=== PATIENT | male | born 1950 | race Caucasian/White ===

== ENCOUNTER 2020-07-14 13:53 | Inpatient (IN) | payer OTHER ==
[~2020-07-14] VITALS: Ht 193 cm; Wt 94.3 kg
[2020-07-14 19:37] VITALS: BP 138/87
[2020-07-14] MEDS ORDERED: VENLAFAXINE HC150 MG PO (22:55)
[2020-07-14] MEDS ORDERED: NAMENDA 10 MG T10 MG PO (22:57)
[2020-07-14] MEDS ORDERED: DULOXETINE HCL30 MG PO (22:57)
[2020-07-14] MEDS ORDERED: ARICEPT10 M1 PO (22:58)
[2020-07-14] MEDS ORDERED: SEROQUEL XR1 EACH PO (23:01)
[2020-07-14] MEDS ORDERED: NEURONTIN600 MG PO (23:02)
[2020-07-14] MEDS ORDERED: LUNESTA3 MG PO (23:03)
[2020-07-14] MEDS ORDERED: DESYREL150 MG PO (23:04)
[2020-07-14] MEDS ORDERED: PROTONIX40 M4 PO (23:05)
[2020-07-14] MEDS ORDERED: QUETIAPINE FUMA25 MG PO (23:07)
[2020-07-14] MEDS ORDERED: ATIVAN1 M1 PO (23:08)
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
[2020-07-15 09:37] VITALS: BP 151/85
[2020-07-15 09:38] VITALS: BP 151/85
--- NOTE | 2020-07-15 10:59 | NUR ---
Nutrition: Received new admission consult. Dx dementia with behaviors. PMH of Alzheimers, suicide attempts in 2013, HLD, HTN, GERD, anxiety. Nsg admission assessment indicated poor intake however pt reports great appetite and stable weights. Ate 100% of breakfast this am on soft, fiber rest. diet ordered by Dr Gay. BM 07/14. Chart reviewed, place as low nutrition risk.
[2020-07-15 11:31] VITALS: BP 151/85
--- NOTE | 2020-07-15 11:49 | NUR ---
Assumed pt care at 0700. pt was calm and compliant with care. oriented to self. Took meds whole, no difficulty noted. Assessments completed, vss. no sign of acute distress noted upon assessments. No c/o pain at this time. denies si/hi. Ambulates with a steady gait. pt wanders into room and around the unit. Will continue to monitor pt.
[2020-07-15 19:30] VITALS: BP 101/70
--- NOTE | 2020-07-16 00:18 | NUR ---
Alert and orientated to self only. 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 Thought he was in [place], [place]. Ambulating t/o unit with regular, steady gait and wandering into other pt rooms, very redirectable. Took meds whole. Breath sounds clear. Reg HR auscultated. Color pink with brisk capillary refill and palpable peripheral pulses. Incontinent of yellow urine per brief. Active bowel sounds over soft, rounded abdomen. Small BM per brief, soft and brown. Fell asleep shortly after Trazadone given, currently sleeping without s/o distress.
[2020-07-16 10:08] VITALS: BP 151/95
[2020-07-16 12:27] VITALS: BP 151/95
--- NOTE | 2020-07-16 15:02 | NUR ---
Assumed pt care at 0700. pt was alert and oriented to self. assessments completed, vss. pt took meds whole, no difficulty noted. DEnies si/hi, denies pain at this time. ambulates with a steady gait. There was no sign of acute distress noted upon assessments. Pt's visited pt. pt wanders the unit. WIll continue to monitor pt.
--- NOTE | 2020-07-16 16:59 | NUR ---
BENITO was able to speak with Amarilis Veras and complete the assessment. Amarilis would like to pursue placement for the Pt. Amarilis stated placement would be private funds until Pt could qualify for medicaid. Amarilis requested ref[place] be sent in the [place]/ [place]/ [place] area. BENITO informed that Pt did have a shower and a shave today per her request. BENITO will continue to follow
[2020-07-16 19:30] VITALS: BP 107/70
--- NOTE | 2020-07-16 22:57 | NUR ---
Alert and orientated to name only. States he has a headache, initially stating it was an 8 and then a 5. Also stating that it wasn't that bad. Tylenol given, sleeping upon reassessment. Denies SI/HI. Calmer this evening, wandering but at a slower pace, very redirectable. Slow, steady, regular gait. Spending more time watching TV and talking with peers. Stated he thought he was here because of Daniel Bergeron. When asked if he wanted Trazadone he stated, "I think I better." Breath sounds clear. Reg HR auscultated. Color pink with brisk capillary refill and palpable peripheral pulses. Yellow urine per toilet, continent when reminded. Active bowel sounds over soft, rounded abdomen. Currently sleeping without s/o distress, awake but quiet on next round.
[2020-07-17 08:24] VITALS: BP 146/85
[2020-07-17 18:06] VITALS: BP 146/85
--- NOTE | 2020-07-17 18:12 | NUR ---
Assumed pt care at 0700. Pt was oriented to self. took meds whole, no difficulty noted. Assessments completed, vss. pt constantly wanders the unit. there is no behavior or sign of si/hi noted. no sign of distress noted upon assessments. ambulates with a steady gait. pt's visited. WILL CONTINUE TO MONITOR.
[2020-07-17 19:47] VITALS: BP 142/79
--- NOTE | 2020-07-17 23:10 | NUR ---
PT WANDERING DAY ROOM AND HALLS, PT DOES CHECK DOORS. FLAT AFFECT, POOR EYE CONTACT, STEADY GAIT. COMPLIANT WITH MEDS AND ADL CARES. SNACK PROVIDED. BED ALARM ON. PT IS INCONTINENT AT TIMES.
[2020-07-18 09:35] VITALS: BP 162/97
[2020-07-18 11:22] VITALS: BP 162/97
--- NOTE | 2020-07-18 11:30 | NUR ---
ASSUMED CARE AT 0700 THIS MORNING. PT. UP WANDERING IN THE HALLS. HE IS OFTEN INFORMED WHERE HIS ROOM IS. HE WILL FOLLOW STAFF AROUND AND HAVE TO BE STOPPED FROM ENTERING PEERS ROOMS. HE IS UNABLE TO SIT STILL FOR VERY LONG. HE ATE ABOUT 1/2 HIS BREAKFAST AND THEN STOOD UP WANDERING THE ROOM. HE WAS STOPPED FROM BEING INTRUSIVE WITH PEERS DURING BREAKFAST. PT. HAS NOT BEEN COMBATIVE THIS MORNING. WAS COMPLIANT WITH TAKING HIS MEDICATIONS AND WITH STAFF INSTRUCTIONS. NO NEW PROBLEMS NOTED OR VOICED. WILL CONTINUE TO MONITOR.
[2020-07-18 19:05] VITALS: BP 164/80
[2020-07-18 20:20] VITALS: BP 164/80
--- NOTE | 2020-07-19 02:35 | NUR ---
PATIENT WAS UP IN DINING ROOM THIS EVENING AND THEN WANDERING IN THE HALLS. HE WOULD COME BACK TO THE DINING ROOM AND JUST STAND AND STARE IF CONFUSED AND DIDN'T KNOW WHAT TO DO NEXT. HE HAS TO BE DIRECTED ON ALL THINGS. AT SNACK TIME HE WAS EATING ICECREAM AND WAS TEARING THE STYROFOAM AWAY FROM THE ICECREAM AND TRYING TO HOLD THE ICECREAM IN HIS HAND. HE WAS A MESS. PATIENT TOOK HIS MEDS CRUSHED IN PUDDING TONIGHT. HE WAS ASSISTED TO BED AND HAS AWOKEN THREE TIMES HE WOULD WANDER TO THE SPARROW AND JUST STAND AND LOOK AROUND. HE WAS EASILY REDIRECTED BACK TO BED. PATIENT DENIES PAIN. NO SIGNS OF SI/HI/AVH. VERY TO HIMSELF TONIGHT. ROUTINE ROUNDS TO ASSESS STATUS AND SAFETY OF PATIENT. BED IN LOW POSITION AND BED ALARM IS ON.
[2020-07-19 10:24] VITALS: BP 159/87
[2020-07-19 13:29] VITALS: BP 159/87
--- NOTE | 2020-07-19 16:55 | NUR ---
Assumed pt care at 0700. pt was oriented to self. Assessments completed, vss. took meds whole, no difficulty noted. Denies si/hi. there was no c/o pain. Ambulates with a steady gait. pt wanders the unit and into rooms. No sign of acute distress upon assessments. pt visited. At this time pt is eating dinner. Will continue to monitor.
[2020-07-19 19:48] VITALS: BP 129/76
[2020-07-19 20:10] VITALS: BP 129/76
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
[2020-07-20 09:41] VITALS: BP 148/85
--- NOTE | 2020-07-20 11:46 | NUR ---
SW sent referrals to the following [phone] [facility] [phone] [facility] [phone] [facility] [phone] [facility] [phone] [facility] [phone] [facility] [phone] [facility] [phone]
--- NOTE | 2020-07-20 14:04 | NUR ---
0700 ASSUMED CARE OF PATIENT, PATIENT AMB IN SAPRROW AT THAT TIME. AMB WITH STEADY GAIT. VS 148/85, 64, 18, 97.4, 100%. PATIENT SIT AT TABLE FOR BREAKFAST THEN BACK UP AMB IN SPARROW AND DAYROOM. PATIENT NOTED TAKING SHIRT OF MULTIPLE TIMES IN SPARROW WAY. PATIENT ASKED TO PUT SHIRT BACK ON. EASILY REDIRECTABLE. MEDICATION TAKEN CRUSHED IN PUDDING. PATIENT CONFUSED AND UNABLE TO FOLLOW DIRECTIO OF TAKING MEDICATION. PATIENT CALM AND COOPERATIVE. SLEEPS IN CHAIR OFF AND ON.
[2020-07-20 19:33] VITALS: BP 167/70
--- NOTE | 2020-07-21 05:09 | NUR ---
07-20-20 CARE TRANSFERRED 1899 OBSERVED PT WALKING IN HALLWAY. LATER PT AAOX1, VSS, RR EVEN AND NONLABORED ON RA. PT REPORTS HEADACHE AND SCALES 5 ON 0-10 SCALE. PT DENIES SI/HI. PT PRESENTS CONFUSED, HAS BEEN COOPERATIVE DURING NURSING ASSESSMENT. LATER PT WANDERING INTO PEERS ROOMS AND PT HAS BEEN REDIRECTED. PT HAS HAD MULTIPY TIMES GETTING REDIRECTED AND HAS SHOWN MILD AGITATION BUT HAS ALLOWED REDIRECTION AND HAS REMAINED CALM. ZERO S/S OF ACUTE DISTRESS NOTED, PT WILL CONTINUE TO BE MONITOR PER [facility] PROTOCOL.
[2020-07-21 08:00] VITALS: BP 151/73
--- NOTE | 2020-07-21 08:45 | NUR ---
Followup: continues to eat 100% meals. Wt up 6 lb, BMI 25.3 adequate. Low nutrition risk
--- NOTE | 2020-07-21 14:45 | NUR ---
0700 ASSUMED CARE OF PATIENT, PATIENT UP IN SPARROW WANDERING. PATIENT NOT FOLLOWING DIRECTION AND RESTLESS DURING BREAKFAST TIME. PATIENT WILL NOT SIT STILL LONG ENOUGH TO EAT. DR LIPSCOMB NOTIFIED AND FINGER FOODS ORDERED. MEDICATION TAKEN CRUSHED WITHOUT DIFFICULTY. PATIENT PRESENT IN GROUPS. PATIENT CALM AND COOPERATIVE. LS CLEAR, BS ACTIVE, NO C/O PAIN.
--- NOTE | 2020-07-21 16:17 | NUR ---
BENITO sent a referral to [facility]. It was emailed to the sports administrator Leona at [email or web address]. The phone number to the facility is [phone]
[2020-07-21 19:26] VITALS: BP 142/83
--- NOTE | 2020-07-22 05:47 | NUR ---
07-21-20 CARE TRANSFERRED 0 OBSERVED PT WALKING IN HALLWAY. LATER PT AAOX1, VSS, RR EVEN AND NONLABORED ON RA. PT DENIES PAIN AND SI/HI AND OBSERVED NO BEHAVIORS. LATER NOTED PT GOT INTO PEERS SPACE AND PT BECAME AGITATED, PT WAS REDIRECTED AND ADMIN PRN. LATER NOTED PT RESTING IN DAY ROOM IN RECLINER. PT WAS ENCOURAGE TO ROOM AND BED WAS ADJUSTED FOR COMFORT. LATER NOTED PT RESTING WITH EYES CLOSED, ZERO S/S OF ACUTE DISTRESS, PT WILL CONTINUE TO BE MONITOR [facility].
[2020-07-22 07:56] VITALS: BP 137/66
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
[2020-07-22 11:15] VITALS: BP 138/71
--- NOTE | 2020-07-22 11:27 | NUR ---
0700 ASSUMED CARE OF PATIENT, PATIENT UP AMB IN SPARROW WITH STEADY GAIT. PATIENT WANDERING AND ENTERING OTHER PATIENTS ROOMS. PATIENT REDIRECTABLE, CALM AND COOPERATIVE. LS CLEAR, BS ACTIVE. ATE 100% OF BREAKFAST. PATIENT UNABLE TO ANSWER SOME QUESTIONS. NO SIGNS OF SI/HI NOTED. PATIENT RECIEVED VISITOR THIS AM. WILL CONTINUE TO OBSERVE.
--- NOTE | 2020-07-22 14:03 | NUR ---
RT Progress Note- Abdulkadir has been present in the milieu since his admission, although his social interactions and boundaries are not up to par. Abdulkadir frequently wanders the hallways and displays restless behavior. He is difficult to engage during groups as he has much difficulty understanding or completing simple tasks. Abdulkadir has been able to remain present for parts of music based groups. He has not displayed any aggression during RT interaction, though he does appear frustrated at times r/t confusion. PIZZA COOK will continue to encourage engagement with a goal to decrease restlessness and wandering through structure.
--- NOTE | 2020-07-22 15:42 | NUR ---
SW sent referrals to the following: [facility]
[2020-07-22 19:08] VITALS: BP 124/84
[2020-07-22 22:37] VITALS: BP 142/71
[2020-07-22 23:15] VITALS: BP 138/71
--- NOTE | 2020-07-22 23:55 | NUR ---
RECEIVED CALL FROM REGISTERED MASSAGE THERAPIST WHO HAD HELPED TX PATIENT TO CT SAYING PATIENT WAS HAVING A SEIZURE. ON ARRIVAL TO CT, PT FOUND TO WITH SNOROUS RESPIRATIONS, IN A POST-ICTAL STATE. CALL PLACED TO TO UPDATE ON PT STATUS; NO ANSWER, MESSAGE LEFT. CALL THEN PLACED TO [facility] ENGINEER FOR ADMISSION TO MEDICAL BED. CALLED BACK AT APPROXIMATELY 2336 AND UPDATED WITH ORDERS RECEIVED. PT IMMEDITALEY TRANSFERRED TO CCT BED. SEIZURE PRECAUTIONS INITIATED ON ARRIVAL TO NEW ROOM.
[2020-07-22] MEDS ORDERED: SEROQUEL 100 M100 M1 PO (23:56)
[2020-07-22] MEDS ORDERED: TYLENOL325 MG PO (23:56)
[2020-07-22] MEDS ORDERED: NAMENDA 5 MG TAB5 M1 PO (23:56)
[2020-07-22] MEDS ORDERED: SEROQUEL 100 M100 MG PO (23:56)
[2020-07-22] MEDS ORDERED: PROTONIX 20 MG20 M1 PO (23:56)
[2020-07-22] MEDS ORDERED: NEURONTIN 400400 M1 PO (23:56)
[2020-07-22] MEDS ORDERED: SEROQUEL 25 MG25 M1 PO (23:56)
--- NOTE | 2020-07-23 03:43 | NUR ---
Late entry 07/22/20 23:15 patient had just left his room, from his bathroom after toileting, @ 22:38 noted to walk out of the room take several steps, drop to his knees and then the left side of his face impacted the floor. post fall assessment @ 23:15 VS 138/71 59 20 97.1F 97%. neuro checks noted pupils 2mm round and reactive to light. Moves all extremities within normal limits for self. Cooperates with commands Stands and pivots to transfer from bed to kev chair for the purpose of transferring to radiology for CT scan. Abrasion noted to left cheekbone below eye. No other injuries noted. Post fall VS @ 22:37 VS142/71 108 14 97% 97.1F VS @ 19:15 (before fall) 124/84 89 18 97.8 99% transferred to radiology for CT. While in radiology the patient had a seizure. Family notified W 23:45, provided the information that the patient had a seizure and a fall at home about 2 months ago at [facility], and had a CT of the head at that time.
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
== END 2020-07-22 23:50 | DRG 57 ==
LOC: SBH → EDBD 19:12 → SBH 19:12
PROVIDERS: ADMIT Psychiatry & Neurology Psychiatry; ATTEND Psychiatry & Neurology Psychiatry
DX: G30.9 Alzheimer's disease, unspecified (principal); F02.81 Dementia in other diseases classified elsewhere, unspecified severity, with behavioral disturbance; K21.9 Gastro-esophageal reflux disease without esophagitis; Z66 Do not resuscitate; Z20.822 Contact with and (suspected) exposure to COVID-19; F01.50 Vascular dementia, unspecified severity, without behavioral disturbance, psychotic disturbance, mood disturbance, and anxiety; F32.9 Major depressive disorder, single episode, unspecified; G47.00 Insomnia, unspecified; I10 Essential (primary) hypertension; F41.9 Anxiety disorder, unspecified; E78.5 Hyperlipidemia, unspecified; Z82.49 Family history of ischemic heart disease and other diseases of the circulatory system; Z81.8 Family history of other mental and behavioral disorders
CPT/HCPCS: 10880

== ENCOUNTER 2020-07-22 23:58 | Inpatient (IN) | payer OTHER ==
--- NOTE | ~2020-07-22 | EEG ---
[facility] [place] [address] ELECTROENCEPHALOGRAM Name: NAPOLEON RAE Room #: 351-P [facility] IN M.R.#: [id number] Admission: 07/23/20 Attend Phys: Charles Scott MD Discharge: 07/26/20 Date of : 52 Report #: [id number] THIS REPORT FOR: //name// DOC #: [id number] Jimi Yeh MD DATE OF SERVICE: 07/23/2020 This patient is being evaluated for seizure. EEG was done by placing the electrode by standard 10-20 system of electrode placement. Both referential and sequential montages were used for recording. EEG is masked by a lot of artifact because the patient is very impulsive. Background activity appeared to be about 6-7 Hz and it is somewhat slow activity. Photic stimulation is unremarkable. The patient became drowsy that is associated with bilateral slowing and vertex sharp waves. Throughout the record, no active epileptiform activity was noted. IMPRESSION: Suboptimal EEG because it is masked by a lot of artifact because the patient did not cooperate, but did not appear to be showing any active epileptiform activity. Thank you very much for this referral. Jimi Yeh MD PK/MAX By: [id number] Jimi Yeh MD /nt
[~2020-07-22 23:58] MED LIST: ARICEPT10 M1 PO; ATIVAN1 M1 PO; DESYREL150 MG PO; DULOXETINE HCL30 MG PO; LUNESTA3 MG PO; NAMENDA 10 MG T10 MG PO; NAMENDA 5 MG TAB5 M1 PO; NEURONTIN 400400 M1 PO; NEURONTIN600 MG PO; PROTONIX 20 MG20 M1 PO; PROTONIX40 M4 PO; QUETIAPINE FUMA25 MG PO; SEROQUEL 100 M100 M1 PO; SEROQUEL 100 M100 MG PO; SEROQUEL 25 MG25 M1 PO; SEROQUEL XR1 EACH PO; TYLENOL325 MG PO; VENLAFAXINE HC150 MG PO
[2020-07-23 00:04] VITALS: BP 121/70
[2020-07-23 00:05] VITALS: BP 121/70
--- NOTE | 2020-07-23 00:15 | NUR ---
Late entry 07/22/20 @ 23:15, Post fall VS 138/71 97.1F 59 20 [id number]% neuro checks noted Pupils 2mm round and reactive to light, moves all extremities within normal limits for self, cooperates with commands. Stands and pivots to transfer to kev chair to transfer to radiology for CT scan. Abraision noted to left cheekbone below eye.
--- NOTE | 2020-07-23 02:48 | NUR ---
PT ARRIVED TO THE UNIT AT 2330 HRS AFTER HE FELL IN [facility]. PT ALSO HAD A SEIZRE WHILE DOWN IN CT. SINCE COMING UP, PT HAS BEEN SOUNDLY SLEEPING. UNANABLE TO ANSWER ANTY QUESTIONS. UP IN [facility], PT WAS KNOWN TO WANDER AROUND.BREATHING IS NON LABORED-REGULAR, SATTING OKAY ON ROOM AIR. PT HAS ABRASION ON LEFT SIDE OF FACE FROM FALL. NO EDEMA TO BLE-SCDS IN PLACE.SEIURE PRECAUTIONS IN PLACE. NS ON TELEMETRY. AFEBRILE. A DOSE OF IV KEPPRA GIVEN.
[2020-07-23 04:15] VITALS: BP 131/78
[2020-07-23 05:04] LABS: HEMATOCRIT 40.7 % (42.0-52.0); HEMOGLOBIN 14.1 gm/dL (14.0-18.0); MCHC 34.6 g/dL (28.0-37.0); MCV 89.6 fL (80.0-100.0); RBC 4.54 mil/uL (4.50-6.00); RDW 13.1 % (10.5-14.5); WBC 7.1 thou/uL (4.0-11.0)
[2020-07-23 05:21] LABS: CALCIUM 8.5 mg/dL (8.5-10.1); CREATININE 1.1 mg/dL (0.7-1.3); POTASSIUM 3.6 mmol/L (3.5-5.1)
[2020-07-23 08:11] VITALS: BP 140/80
--- NOTE | 2020-07-23 10:10 | NUR ---
PT SLEEPING AT START OF SHIFT, PT BECAME RESTLESS AND INCREASED IMPULSIVE BEHAVIOR AFTER EEG. PT TOOK OFF TELE UNIT, GOWN AND WAS TRYING TO GET OUT OF BED. PT ABLE TO BE DISTRACTED WITH THERAPEUTIC COMMUNICATION. PT UP IN BED WITH BREAKFAST TRAY. PT UNABLE TO REACH/GRAB FOR FOODS BUT DOES TAKE BITE WHEN ASSIST BRING FOOD TO MOUTH. PT NOW IN ROOM.
[2020-07-23 11:31] VITALS: BP 120/68
--- NOTE | 2020-07-23 13:25 | NUR ---
SW received an update in tx team of pt's current condition. SW team will continue to follow pt during his stay on [facility] and [facility].
--- NOTE | 2020-07-23 14:56 | NUR ---
PT COMPLAINT OF CHEST PAIN. EKG ORDERED. DR Kacy DUKE. PT ASYMPTOMATIC. TELE STRIP RAN AND RECORDED IN CHART.
--- NOTE | 2020-07-23 15:43 | NUR ---
INITIAL ASSESSMENT: BENITO reviewed chart and spoke with nursing and attending physician. Pt was admitted from [facility] unit after seizure while have CT completed. Pt had a fall on [facility] last evening. Plan is for pt to remain on 3W over the weekend and will likely discharge back to [facility] on Sunday pending bed availability. BENITO met with pt and at bedside. Introduced role of SW. Pt was sleeping soundly during time of SW visit. Per pt's , pt has hx of dementia and started to become aggressive towards her. Plan is for pt to be placed in a facility and then hopefully will be able to move into a facility in [place], which will be closer to their son. [facility] SW has sent referrals to numerous facilities. Pt and spouse live in [place], [place]. BENITO spoke with Afia, group reservations coordinator at [facility] who states they will reconsider pt and possibly do a bedside eval. BENITO faxed clinical/therapy note for review. BENITO updated [facility] SW. BENITO is following to assist as needed with discharge planning.
--- NOTE | 2020-07-23 15:43 | NUR ---
THIS RN DROPPED THE LORAZEPAM WHEN REACHING OVER TO PT. WITNESSED BY PT . NEW MEDICATION WILL BE PULLED FROM [facility].
--- NOTE | 2020-07-23 15:56 | EKG ---
[address] [place] [address] ELECTROCARDIOGRAM REPORT Name: NAPOLEON RAE Room #: 354-P ADM IN M.R.#: [id number] Admission: 07/23/20 Attend Phys: Charles Scott MD Discharge: Date of : 52 Report #: [id number] [facility] Test Date: 2020-07-23 Test Time: 15:17:06 Pat Name: NAPOLEON RAE Department: Room: 354 P Gender: M Barrel Tester: [id number] : 1950 Requested By: Charles Scott Order Number: [id number] MD: Taj Grossman Measurements Intervals [place] Rate: 67 P: 41 DC: 164 QRS: -25 QRSD: 85 T: 30 QT: 427 QTc: 451 Interpretive Statements Sinus rhythm Left ventricular hypertrophy No previous ECG available for comparison Electronically Signed On 07-23-2020 15:56:07 CDT by Taj Grossman [email or web address] <ELECTRONICALLY SIGNED> By: Taj Grossman MD, [facility] 07/23/20 1556 1517 1517 Taj Grossman MD, FACC /EPI
--- NOTE | 2020-07-23 18:22 | NUR ---
PT INCREASED RESTLESSNESS. PT HAS LEFT FOR THE DAY. PT MOVED TO ROOM CLOSER TO NURSES STATION. DR MILA DUKE.
[2020-07-23 19:10] VITALS: BP 147/73
--- NOTE | 2020-07-24 05:01 | NUR ---
Pt. has had periods of restlessness during the night requiring po haldol (see emar). Medication has been briefly helpful. Pt. has sounded off his bed alarm, but he does not know how to call for assistance. Pt. is alert,confused, but redirectable. Up to bathroom with standby assistance. Pt. keeps pulling off his heart monitor leads. He pulled out his iv earlier during the shift. Bed alarm is on.
--- NOTE | 2020-07-24 06:56 | NUR ---
ASSUMED PT CARE AT SHIFT CHANGE, PT HAS INCREASED IMPULSIVENESS. HALDOL PRN ADMINISTERED. PT REMOVED ONE IV DURING COSTUMED CHARACTER ENTERTAINER AND TELEMETRY.
[2020-07-24 07:11] VITALS: BP 148/79
--- NOTE | 2020-07-24 07:12 | NUR ---
PER PT MEDICAL RECORDS, PT IS A DNR.
[2020-07-24 15:21] VITALS: BP 151/89
[2020-07-24 20:15] VITALS: BP 140/81
--- NOTE | 2020-07-25 07:18 | NUR ---
PROGRESS PT ALERT TO SELF, PLEASANT AND COOPERATIVE, SMILING AND SOCIABLE. REMAINS IMPULSIVE AND CONFUSED BUT EASILY REDIRECTED. UP WITH SBA AND GAIT BELT AMBULATED AROUND THE UNIT A FEW TIMES. LAID IN BED FOR SHORT PERIODS BUT SPENT THE MAJORITY OF THE NIGHT UP IN RECLINER VISITING WITH SITTER. VSS, TAKING PO PILLS WITH APPLESAUCE AND SIPS OF WATER WHEN OFFERED. CONTINUE SITTER NEEDED OFFER FOOD AND FLUIDS THROUGHOUT DAY.
--- NOTE | 2020-07-25 07:23 | NUR ---
ASSUMED PT CARE AT SHIFT CHANGE, PT APPEARS EXHAUSTED. IS SLIGHTLY MORE CONFUSED/DISORIENTED THAN PREVIOUS DAY. PT UNABLE TO FOLLOW COMMANDS TO TOILET. THIS RN WALKED PT APPROXIMATELY 20 FEET BEFORE TAKING HIM BACK TO BED FOR REST. SITTER FROM SBU IN ROOM.
[2020-07-25 08:31] VITALS: BP 149/89
--- NOTE | 2020-07-25 10:37 | NUR ---
PT REMOVED IV ACCESS. PT WILL NOT TOLERATE NURSING ATTEMPTS FOR PLACEMENT OF ANOTHER IV. PHYSICIAN NOTIFIED.
--- NOTE | 2020-07-25 13:36 | NUR ---
PT HAS INCREASED CONFUSION, IS UNABLE TO USE URINAL AND HAS DIFFICULTY WHEN DIRECTED TO SIT ON TOILET.
--- NOTE | 2020-07-25 14:46 | NUR ---
DISCUSSED MEDICATION FOR SLEEP WITH DR LIPSCOMB. REC'D VERBAL ORDER AND ENTERED FOR PHARMACY REVIEW.
--- NOTE | 2020-07-26 07:17 | NUR ---
PROGRESS PT ALERT BUT NOT ORIENTED TO PLACE OR SITUATION. REMAINS ACTIVE WANTING TO WALK AND GET UP ALL THE TIME. HS MEDS GIVEN WITH SOME RESPONSE PT SLEPT ABOUT 4 HOURS. NO ATIVAN THIS SHIFT. ATE A HS SNACK DRANK A GLASS OF WATER AND VOIDED PER BRIEF A FEW TIMES. DENIES PAIN VSS. CONTINUE POC.
[2020-07-26 07:30] VITALS: BP 138/77
[2020-07-26] MEDS ORDERED: DEPAKOTE SPRIN125 MG PO (13:17)
--- NOTE | 2020-07-26 14:25 | NUR ---
DISCHARGE NOTE: SW reviewed chart and spoke with nursing and attending physician. Pt is medically stable to discharge to [facility] unit today. SW met with pt and at bedside. SW left voice message for Afia at [facility] to notify of pt's discharge. [facility] SW to follow and assist as needed with discharge planning. SW is available to assist should needs arise.
--- NOTE | 2020-07-26 20:24 | HC ---
[facility] [address] CONSULTATION Name: NAPOLEON RAE Room #: 351-P [facility] IN M.R.#: [id number] Admission: 07/23/20 Attend Phys: Charles Scott MD Discharge: 07/26/20 Date of : 52 Report #: [id number] THIS REPORT FOR: cc: Levi Talbert MD, Matthew S. MD Kerstein, Andrew H. DO ~ DOC #: [id number] KEYLA Do DO DATE OF SERVICE: 07/23/2020 ATTENDING PHYSICIAN: Charles Scott MD CONSULTING PSYCHIATRIST: Keyla Do DO The patient's DPOA is his , Amarilis. She was present today. CHIEF COMPLAINT: "Doing okay." HISTORY OF PRESENT ILLNESS: This is a 69-year-old male who I previously had on my service on the [facility] Unit. Apparently, last night on [facility], he had a fall, bruised his left cheek. He was taken down for a CT scan of his head, facial bones and had a seizure in the CT area of the hospital. The patient was then emergently discharged from the [facility] Behavioral Health Unit and admitted to the medical unit until Dr. Yeh, our neurologist, has been consulted. The patient was seen in his room today. He was eating lunch. He was alert, but only oriented to self. He denied suicidal or homicidal ideations. He did not know the day of the week. I spoke at length with his , Amarilis. They are recently within the last 2 years relocated to [place], [place] and she has been contemplating what to do with her . His dementia has advanced since they moved back here. In my opinion, he does need 24/7 care in a Memory Care Facility. I have suggested either a respite placement initially or if her sons can help her, she is interested in a nursing facility in [facility]. However, the is contemplating initially taking him home for a few days. I tried to dissuade her from that. That said, she is now working with Maria R Cooper, the medical scribe on placement issues. I spent a fair amount of time discussing medications. The patient had been on Seroquel I believe 100 mg 3 times a day range and since he had a seizure on this drug and was fairly akathisic on it, she preferred to try something else, so I have started him on Depakote 500 mg sprinkles 3 times a day. He did successfully take a dose this afternoon. I discussed with the , the risks, benefits and alternatives of Depakote including the blood monitoring, transaminitis, gait impairment, etc. Discussed limited life expectancy of the patient in this case. Additional information from chart review. PAST MEDICAL/SURGICAL HISTORY: Includes Gabriel fundoplication for GERD . [address] [address] CONSULTATION Name: NAPOLEON RAE Room #: 351-P [facility] IN M.R.#: [id number] Admission: 07/23/20 Attend Phys: Charles Scott MD Discharge: 07/26/20 Date of : 52 Report #: [id number] EDUCATIONAL HISTORY: Bachelor of Pharmacy degree. FAMILY HISTORY: Extended family history of bipolar disorder. No family history of dementia. No physical or sexual abuse history. SOCIAL HISTORY: No smoking, alcohol or illicit drugs. LABORATORY DATA: Laboratories done last night, white count 7.1, H and H 14.1 and 40.7, platelet count 191. Electrolytes: Sodium 144, potassium 3.6, chloride 107, bicarbonate 27, anion gap 10, BUN 14, creatinine 1.1, estimated GFR 67, glucose 122, calcium 8.5. Troponin less than 0.06. CURRENT MEDICATIONS: Lorazepam 1 mg p.o. at bedtime p.r.n. that I ordered, Depakote 500 mg p.o. 3 times a day at 0900, 1500, and 2100. He did get IV loading dose of Keppra. I will defer to the hospitalist and consulting neurologist if any other seizure, medication to be given daily, seizure prevention medication, hence an anticonvulsant. PHYSICAL EXAMINATION: VITAL SIGNS: Today, temperature 37.0, pulse 66, respirations 18, BP 120/68, O2 sat 97%. MUSCULOSKELETAL: Gait not tested. Sitting propped up in bed with lunch tray. MENTAL STATUS EXAMINATION: This is a well-developed, tall male appearing stated age, 192 cm. Attention impaired. Concentration impaired. Speech, normal rate. Thought Process: Linear, very limited. Thought Content: Fair poverty of thought. No psychomotor agitation. No psychomotor retardation. Denied suicidal ideation. Denied homicidal ideation. Denied auditory, visual, or tactile hallucinations. Memory: Not formally tested. Insight: Impaired. Judgment: Impaired. Fund of Knowledge: Well below average. FORMULATION AND PLAN: A 69-year-old male medically admitted after seizure and fall and seen in Behavioral Health Unit. DIAGNOSES: Major neurocognitive disorder due to Alzheimer's disease, advanced with behavioral disturbance. Medical comorbidities include a recent seizure as in last night with history of prior seizure in the last year, insomnia, hypertension, gastrointestinal reflux disease. RECOMMENDATIONS: Started Depakote sprinkles 500 mg 3 times a day for mood stabilization. This medication also has an anticonvulsant effect. We are hoping to avoid use of an antipsychotic, as this patient is likely facing group home placement and those are harder to maintain and some authorities would view as an unacceptable risk. In any event, he has not slept well, and [facility] [address] [place] [address] CONSULTATION Name: NAPOLEON RAE Room #: 351-P DIS IN M.R.#: [id number] Admission: 07/23/20 Attend Phys: Charles Scott MD Discharge: 07/26/20 Date of : 52 Report #: [id number] is wanting Lunesta, which we will have him on formulary, so we will give him 1 mg at bedtime. It looks like he was given 1 mg this afternoon of the bedtime order, but that should not be a regular thing, as I did not want him getting Ativan during the day. In any event, I informed the I will be off this weekend and I will see him again in consultation psychiatry format on Sunday. Unfortunately, the [facility] is full numbers hong and he will have to stay in a medical bed this weekend. Thank you for allowing me to participate in this patient's care. DO CORY Lancaster/NELL/TAJ <ELECTRONICALLY SIGNED> By: Keyla Do DO 07/26/204 1557 1249 Keyla Do, /nt
--- NOTE | 2020-07-27 08:37 | H ---
[facility] [place] [address] HISTORY AND PHYSICAL Name: NAPOLEON RAE Room #: 351-P [facility] IN M.R.#: [id number] Admission: 07/23/20 Attend Phys: Charles Scott MD Discharge: 07/26/20 Date of : 52 Report #: [id number] THIS REPORT FOR: cc: Levi Talbert MD, Matthew S. MD Kerstein, Andrew H. DO ~ DOC #: [id number] KEYLA Do DO DATE OF SERVICE: 07/23/2020 INPATIENT PSYCHIATRIC EVALUATION Please note this is a readmission after several days spent on a medical bed after a fall and seizure last week. SOURCES OF INFORMATION: Interview with the patient, chart review. CHIEF COMPLAINT: Unspecified. HISTORY OF PRESENT ILLNESS: This is a 69-year-old male known to me from admission on the [facility] Behavioral Health Unit from July 16 through July 23 or so and then readmission today July 26. The patient was initially brought in from where he lives with his in [place] for Alzheimer dementia with behavioral disturbance. The patient had some restlessness during the admission. We had made some progress with Seroquel. When unfortunately he had a fall and then a seizure, he was medically admitted. During the medical admission this past SundayJuly 24 and , I was called for assistance with agitation. I initially had started him on 500 mg 3 times a day of Depakote. This proved not to be adequate and always on a medical unit titrated him to 50 mg 3 times a day of chlorpromazine in addition to the Depakote. Other issues from his original admission back on the or so june were the patient and his lived here about 2 years, moved back here from [place] where they spent their adult life, apparently was originally from here. The patient had been a career pharmacist, history of dementia dating back to 2011. Weight is decreased, it looks like in the 25-pound range over 6 months. Sleep is disturbed. reported him being restless. He needs help with basically all of his IADLs. He is ambulatory. Of note, his outpatient psychiatrist is Dr. Dejon Ocasio in the [facility]. ROS: not obtainable due to severity of dementia ADDITIONAL INFORMATION: Past medical history, history of Gabriel fundoplication for GERD in . PAST SURGICAL HISTORY: Hernia repair. PSYCHIATRIC HISTORY: Includes anxiety, depression, Alzheimer's dementia. [facility] [address] [place] [address] HISTORY AND PHYSICAL Name: NAPOLEON RAE Room #: 351-P [facility] IN [facility]#: [id number] Admission: 07/23/20 Attend Phys: Charles Scott MD Discharge: 07/26/20 Date of : 52 Report #: [id number] EDUCATIONAL HISTORY: Bachelor's of pharmacy degree. 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. FAMILY HISTORY: Extended family history of bipolar disorder. No family history of dementia. ABUSE HISTORY: Denies history of physical, sexual, or emotional abuse. SOCIAL HISTORY: No history of alcohol, smoking, or tobacco use. LABORATORY DATA: Most recent laboratories are as follows from July 23, hematology: White count 7.1, H&H 14.1 and 40.7, platelet count 191. Chemistries: Sodium 144, potassium 3.6, chloride 107, bicarbonate 27, anion gap 10, BUN 14, creatinine 1.1, estimated GFR 67, glucose 122, calcium 8.5. Troponin less than 0.06. It should be noted, I believe the seizure was attributed to a concussion from fall, sleep deprivation and other factors such as being on antipsychotics to lower the seizure threshold. Read as there is just an EEG that had a lot of artifact, but did not show any active epileptiform activity. PHYSICAL EXAMINATION: VITAL SIGNS: Today, temperature 36.6, pulse 87, respirations 18, BP 131/84, O2 sat 95%. MUSCULOSKELETAL: Normal gait, station, wearing glasses. GENERAL: He is a well-developed, tall male appearing stated age. Attention limited. Concentration very limited. Speech normal rate, volume, and tone. Thought process linear and goal directed. Thought content, fair poverty of thought. No psychomotor agitation, no psychomotor retardation. Denied SI, HI, or auditory, visual, or tactile hallucinations. Memory grossly impaired, not formally tested. Insight impaired. Judgment impaired. Fund of knowledge below average. FORMULATION AND PLAN: A 69-year-old male readmitted to geriatric psychiatry after a fall and seizure Sunday of last week. The patient is now needing further stabilization to address ____ on the medical floor. He also needs a memory care placement. DIAGNOSIS: At this time, major neurocognitive disorder due to Alzheimer's disease, earlier onset with behavioral disturbance, improving. Other medical morbidities noted by the hospitalist include history of seizure x2, [facility] [address] [place] [address] HISTORY AND PHYSICAL Name: CROPP,NAPOLEON Room #: 351-P DIS IN M.R.#: [id number] Admission: 07/23/20 Attend Phys: Charles Scott MD Discharge: 07/26/20 Date of : 52 Report #: [id number] hypertension, GERD. PLAN: Admit to Geriatric Psychiatry, evaluate and stabilize. Obtain collateral. Dr. Scott was consulted for medical consultation. Regarding his medications currently: Depakote 500 mg sprinkles oral 3 times a day, chlorpromazine 50 mg oral 3 times a day, trazodone 75 mg p.o. at bedtime p.r.n., otherwise, house p.r.n. We will see how he does while back on the psych unit with new medications. Estimated length of stay is five to ten days. Time spent on this evaluation was 45 minutes. STRENGTHS: He is insured, family support. WEAKNESSES: Early dementia, fairly advanced. BMI is 24.5, weight 91.37 kg, height 192 cm. DO CORY Lancaster/CHARU/GLORIA <ELECTRONICALLY SIGNED> By: Keyla Do DO 07/27/20 0837 [id number] Keyla Do DO /nt
== END 2020-07-26 15:04 | DRG 101 ==
LOC: 3W 23:58
PROVIDERS: Nurse Practitioner Family; ADMIT Internal Medicine; ATTEND Internal Medicine
DX: G40.909 Epilepsy, unspecified, not intractable, without status epilepticus (principal); F02.81 Dementia in other diseases classified elsewhere, unspecified severity, with behavioral disturbance; F01.51 Vascular dementia, unspecified severity, with behavioral disturbance; G30.9 Alzheimer's disease, unspecified; K21.9 Gastro-esophageal reflux disease without esophagitis; F32.9 Major depressive disorder, single episode, unspecified; F41.9 Anxiety disorder, unspecified; E78.5 Hyperlipidemia, unspecified; I10 Essential (primary) hypertension; G47.00 Insomnia, unspecified; Z66 Do not resuscitate; Z79.899 Other long term (current) drug therapy
CPT/HCPCS: 10080; 10879

== ENCOUNTER 2020-07-26 13:44 | Inpatient (IN) | payer OTHER ==
[~2020-07-26] VITALS: Ht 193 cm; Wt 91.2 kg
[~2020-07-26 13:44] MED LIST changes: +DEPAKOTE SPRIN125 MG PO
[2020-07-26 15:56] VITALS: BP 131/84
--- NOTE | 2020-07-26 16:43 | NUR ---
PT. ARRIVED AT 1505 FROM 3RD FLOOR. HE WAS DIAGNOSED WITH ALZHEIMER'S IN 2013. HE HAS MAD SEVERAL SI ATTEMPTS IN THE PAST, BUT UNSURE HOW HE DID THIS. HE IS . HE WAS BECOMING INCREASINGLY AGGRESSIVE TO HIS , BECOMING MORE AGITATED, AND NOT TAKING HIS MEDICATIONS. HE HAS CONFUSED SPEECH AND IS UNABLE TO ASSIST WITH THE ADMISSION PROCESS. HE IS UNABLE TO ANSWER WEATHER HE HAS SI/HI OR AVH. HE PACES THE HALLWAYS. HIS HRR, LUNGS CTA. COLOR IS PINK WITH BRISK CAPILLARY REFILL. HE IS INCONTINENT OF BOWEL AND BLADDER BUT IF HE IS LOOKING FOR HIS ROOM, CHANCES ARE HE HAS TO USE THE BATHROOM. HE HAS A PMHX OF SI ATTEMPTS, HLD, HTN, GERD, ANXIETY AND POOR APPETITE. HIS IS HIS DPOA. WILL CALL HER HER TO VERBALLY SIGN HIS CONSENTS.
[2020-07-26 20:00] VITALS: BP 119/75
[2020-07-26 20:06] VITALS: BP 119/75
--- NOTE | 2020-07-27 02:14 | NUR ---
PATIENT WAS CALM AND COOPERATIVE TONIGHT. HE IS A/0X1. EARLY IN THE ASH WORKER PATIENT ROAMED THE HALLS BUT MAINLY STAYED NEAR THE DINING ROOM. HE DOES RESPOND TO HIS NAME. HE GETS RESTLESS AT TIMES AND AT TIMES THIS USUALLY MEANS HE NEEDS TO USE THE RESTROOM. PATIENT CANNOT FIND HIS ROOM AND NEEDS GUIDED BACK TO HIS ROOM TO TOILET. HE IS KNOWN TO WANDER INTO PATIENT ROOMS OR THE CONFERENCE ROOM TO TRY AND TOILET HIMSELF. PATIENT WAS DROWSY AND SLEEPING SITTING UP ON COUCH IN DINING ROOM. HE HAD HS SNACK OF ICECREAM AND TOOK HIS MEDS CRUSHED IN ICECREAM. PATIENT WALKED BACK TO ROOM AND HE CLIMBED IN BED. HE DID THIS 3 TIMES, STAYING IN BED FOR ONE MINUTE BEFORE GETTING BACK UP. PATIENT WAS WALKED TO THE DINING ROOM AND PLACED IN A RECLINER AND COVERED WITH BLANKET AND PILLOW. PT SITTING ON CHAIR ALARM. PATIENT HAS BEEN SLEEPING MOST OF EVENING. HE HAS NOT ATTEMPTED TO GET UP FROM CHAIR. APPEARS TO BE RESTING COMFORTABLY. NO SIGNS OF SI/HI/AVH. DENIES PAIN. CONTINUING TO MONITOR.
[2020-07-27 09:04] VITALS: BP 154/88
[2020-07-27 09:43] VITALS: BP 154/88
--- NOTE | 2020-07-27 11:32 | NUR ---
1130 RESUMMED CARE FROM OVERNIGHT SHIFT THIS AM, PATIENT WALKING AROUND WANDERING IN OTHER PATIENTS ROOM. PATIENT ALERT ORIENTED TO SELF ONLY PATIENT NOT ABLE TO TELL ME ABOUT SI/HI/AH/VH AT PRESENT. PATIENT HAS CONFUSION AND IS FORGETFUL. PATIENTS ABDOMEN SOFT BOWEL SOUNDS PRESENT PATIENTS LUNGS CLEAR. PATIENT IS CALM COOPERATIVE EASY TO REDIRECT WHEN WANDERING IN OTHER PATIENTS ROOM. WILL CONTINUE TO MONITOR PATIENT FOR SAFETY AND FOR BEHAVIORS.
--- NOTE | 2020-07-27 14:58 | NUR ---
Nutrition: pt transferred back to [facility] following seizure during CT and recent fall. Dx: major neurocognitive disorder with behavioral disturbance. Stable weights recently. Appetite is generally great, 75-100% intake of meals on regular diet. Low nutrition risk.
--- NOTE | 2020-07-27 18:06 | NUR ---
6404 BENITO called Pt's , Mary, concerning placement at [facility] and to set up a family meeting. Jyoti stated the facilty was too far from her home and they have not returned her phone call. Jyoti went on to discuss [facility] [place]. BENITO exaplained the facility wanted two weeks of no aggression and no behaviors. BENITO went on to explain that at 3 days of improved and safe behaviors Pt will be ready for discharge. Also if Pt is ready for discharge he would not be able to stay at the hospital because the facility's requirements for behaviors. Mary seemed to become frustrated stating she understood the nursing [facility] position on safe behaviors and it would be better if Pt could be placed in [place]. Mary stated, " I am not impressed by the nursing homes in this area, I went with [facility] because it was close to my home but they dont' have good reviews." Mary went on voice dissatifaction with [facility], stating " I don't feel welcomed by the [facility], its like I am visiting a prision", " I tell the nurses my concerns and they just say they aren't his nurse." Mary voiced frustration about having to sign the Pt in everytime he moved to a diffrent floor and requested and explaination. BENITO was unaware of the reason for this process and offered to have Oralia Heath call her concerning hospital administration processes. Mary also stated she felt the medications thorazine currently perscribed to Pt was "primitive" and "there has to be other medications for dementia". BENITO attempted to schedule a family meeting to discuss medication with Dr. Lyle. Mary continued to voice her grievances. BENITO again offered a meeting. Mary stated she wanted to speak with her daughter about the times and would call BENITO back. Benito did not recieve a call back. @1600 prior to a visit on the unit Mary stopped by BENITO office and stated her daughter was not avalible for a meeting until after 5pm. BENITO offered a time between regular business hour. Mary stated " Well you all can figure it out and walked out of BENITO office to the floor to visit". BENITO will call daughter to attampt to a arrange a time.
[2020-07-27 19:42] VITALS: BP 130/82
[2020-07-28 03:35] VITALS: BP 130/82
--- NOTE | 2020-07-28 03:56 | NUR ---
Assumed care on 07/27/20 @ 19:15, pacing the halls, trying any doors that he encournters. @ 19:31 while in the [place] near the activity room, sat purposefuly on the floor. Had no injuries from seating self on the floor. Redirected to sit in a chair in the activity room. Calm and redirectable. Takes his meds whole, with water. After medication administration, retired to bed where he slept until 0100, awakened got out of bed and was seated in a recliner in the activity room on a chair alarm. Covered in a lap blanket, was calm and alternately dozed and slept.
[2020-07-28 08:00] VITALS: BP 143/75
--- NOTE | 2020-07-28 12:30 | NUR ---
Alert and orientated to name only. Denies SI/HI. Stated his penis hurt after breakfast. Voided, did not verbalize pain after void. Breath sounds clear. Reg HR auscultated. Color pink with brisk capillary refill and palpable peripheral pulses. Voided yellow urine per toilet. Penis without s/o infection, edema or drainage. Active bowel sounds over soft, flat abdomen. Dr. Do notified Dr. Link, plan is to put in urology consult.
[2020-07-28 19:32] VITALS: BP 134/79
[2020-07-28 22:29] VITALS: BP 134/79
--- NOTE | 2020-07-28 23:07 | NUR ---
Assumed care on 07/28/20, ambulating in the halls and urinated on the floors of his room. Urine cleaned up and wet clothes laundry. Patient redressed and ambulated with a x1 assist to the day room. Seated in a kev chair on a chair alarm. Cooperated with assessment, A&Ox1 03/27 to name and , no other orientation noted. Unable to respond to mental health assessment questions. Took crushable meds crushed in yogart. Drank 6 oz of thin water. Fell asleep in kev chair @ HS, sleeping soundly with eyes closed, respirations even and unlabored. Thompson score 55, high fall risk, fall precautions being observed. Will continue to monitor for safety and comfort as per unit protocol.
[2020-07-29 07:30] VITALS: BP 146/87
--- NOTE | 2020-07-29 13:18 | NUR ---
BENITO sent updates to Michelle at [facility]. [facility] denied admission. Referral resent to the following: [facility]
--- NOTE | 2020-07-29 14:58 | NUR ---
Supervisor Building Maintenance met with Amarilis face to face on 07-28-20 and discussed patient issues such as moving patient to [place] and what the patient was like before the dementia. tearful and sad. Also had numerous suggestions for improving the operatioon of the unit as she was a PNP and was network administrator for nursing homes. Thanked for suggestions. Discussed her attending treatment team on Sunday and told her I would reach out with a time for her to be on the unit to participate.
--- NOTE | 2020-07-29 15:00 | NUR ---
Called and spoke to to let her know we would hold treatment team for her tomorrow at 0945. Also told her I would reach out to daughter in [place] to join treatment team by phone. in agreement. Called daughter and left VM about treatment team time.
--- NOTE | 2020-07-29 17:02 | NUR ---
SW sent referral to [facility]- denied no memory care unit [facility]- scheduled visit with Pt 07/30/2020 @12pm. They are taking another look at the Pt for admission.
--- NOTE | 2020-07-29 19:39 | NUR ---
0700 ASSUMED ARE OF PATIENT, PATIENT UP AMB IN SPARROW WITH STEADY GAIT. PATIENT ASSISTED WITH MEALS. PATIENT CONFUSED AND UNABLE TO FOLLOW DIRECTIONS. MEDICATION GIVEN WHOLE WITHOUT DIFFICULTY. PATIENT NOTED UNSTEADY AFTER MEDICATIONS. PATIENT IN GERICHAIR WITH LAP BUDDING SECURED IN FRONT. DR'S ORDER RECIEVED FOR LAP JUAN CARLOS 2 HRS AFTER MEDICATIONS. PATIENT WANDERS IN SPARROW AND OTHER PATIENTS ROOM. NO SI/HI NOTED, LS CLEAR, BS ACTIVE.
[2020-07-29 19:48] VITALS: BP 145/94
--- NOTE | 2020-07-30 04:01 | NUR ---
SITTING IN GERICHAIR IN DAYROOM ON INITIAL APPTOACH AT 1930. OFFERS 1-2 WORD RESPONSES DURING PM ASSESSMENT AND MED PASS. DID TAKE MEDS CRUSHED IN ICE CREAM BUT ATTEMPTING TO EAT BLANKET AND SLEEVE OF SHIRT WELL. DID BECOME ATAXIC APPROX 30-45 MINUTES AFTER TAKING MEDS AND GAIT BECAME VERY UNSTEADY-REFUSING TO STAY IN GERICHAIR -APPEARS SOMULENT AND NOTED TO BE ATTEMPTING TO AMBULATE WITH EYES CLOSED. LAP BELT APPLIED FOR APPROX 45 MINUTES [id number] BEFORE ASSISTED TO BED BY 2 STAFF-INCONTINET OF MODERATE AMOUNT URINE-APPEARED TO REST QUIETLY UNTIL APPROX 244 WHEN HE TRIGGERED THE BED ALARM-FOUND ATTEMPTING TO CRAWL OVER SIDERAIL OF BED-ASSISTED TO TOILET BUT NO VOID-REPOSITIONED IN BED BUT IS ATTEMPTING TO CRAWL OVER SIDE RAIL AGAIN 5-10 MINUTES. ASSISTED TO GERICHAIR AND IS SITTING QUIETLY IN DAYROOM
[2020-07-30 10:31] VITALS: BP 115/83
[2020-07-30 13:39] VITALS: BP 115/83
--- NOTE | 2020-07-30 16:16 | NUR ---
Mary was able to attend a meeting today 9:45am. SW, Dr. Do, Oralia Heath, Kourtney Miller, IT SECURITY CONSULTING DIRECTOR, Sarbjit GANDHI, Phamacist Rudy, Rec therapist Cleopatra Case were also in attendance of this meeting. Pt's children Elidia and Elijah attended by phone. Medications and placement were discussed. Mary expressed her concerns with thorizine. Dr. Lyle discussed the benefits of the medication and the Pt's improvement since the start of the medications. Dr. Lyle agreed to look at the medication and possible change. The family was informed that [facility] has accepted the Pt and [facility] declined. Mary insisted several times that [facility] did not decline. This in spite of [facility] having a conversation with Mary about the decline and and email to declining the Pt. Oralia Heath encouraged Mary to talk to and tour potential facilites over the weekend. Respite was also brought up as a potential to assist with the transition. Mary was informed about [facility] as a potential placement also. Mary stated " I am not just going to put him any place". Oralia Heath discussed insurance and hospital policy concerning acuity and need for inpt psychiatric care. Mary was informed several times in the meeting of the timeline for Pt to be placed. Mary was informed that if she was unable to agree to a placment Pt would have to be sent home with a recommendation for in home services to assist with caregiving. SW team will continue to follow.
--- NOTE | 2020-07-30 17:07 | NUR ---
BENITO emailed a listing of nursing homes for the purposes of respite or placement to Mary at
[2020-07-30 19:46] VITALS: BP 182/91
--- NOTE | 2020-07-31 00:16 | NUR ---
INCREASED RESTLESSNESS AND ANXIETY THIS PM-ANXIOUS FACIAL EXPRESSION AND NOTED TO WRINGING HANDS-PICKING AT NOSE AND SKIN ON ARMS ALMOST CONSTANTLY. PACING IN DAYROOM AND HALLWAYS UNTIL AFTER ADMINSTRATION OF HS MEDICATIONS INCLUDING TRAZADONE 75MG PO PRN WHEN GAIT BECOME UNSTEADY-PLACED IN GERICHAIR IN DAYRROM WITH LAP BELT SECURED IN FRONT AND LEGS ELEVATED. INCONTINENT OF LARGE BM AND URINE X 2 SO FAR THIS SHIFT-REQUIRES ASSIST OF 2 STAFF FOR INCONTINENT CARED/T MILD RESISTANCE AEB GRABBING ONTO PANTS ,DEPENDS OR STAFFS HANDS AND REFUSING TO LET GO. BARRIER CREAM APPLIED SKIN TO COCYX APPEARS INTACT-NO REDNESS OR EXCORIATION NOTED. SCROTUM IS SLIGHTLY REDDENED-ZGUARD APPLIED. REMAINS AWAKE IN DAYROOM AT 0100.
--- NOTE | 2020-07-31 04:24 | NUR ---
HAS BEEN AWAKE ALL NIGHT-REPOSITIONED FOR COMFORT Q 2 HOURS-INCONTINENT CARE Q [address] IN BED X2 BUT FOUND ATTEMPTING TO CRAWL OVER SIDERAILS BOTH TIMES WITHIN 10-15 MINUTES OF STAFF EXITING ROOM. MOSTLY [id number] WILL RESPOND YES OR NO IN AN APPRORIATE MANNER.
[2020-07-31 09:24] VITALS: BP 148/95
[2020-07-31 09:47] VITALS: BP 148/95
--- NOTE | 2020-07-31 11:48 | NUR ---
1145 RESUMMED CARE FROM OVERNIGHT SHIFT THIS AM, PATIENT IN DAY ROOM SITTING IN DAY ROOM SLEEPING. PATIENT ATE SOME BREAKFAST TOOK MEDICATION CRUSHED IN YOGART. PATIENT IS ALERT ORIENTED TO SELF ONLY PATIENT IS STILL LETHARGIC AT TIMES. PATIENT DOES WALK OCCASSIONALLY AROUND THE UNIT PATIENTS ABDOMEN SOFT SOFT BOWEL SOUNDS PRESENT. PATIENTS LUNGS CLEAR PATIENT IS CALM COOPERATIVE PATIENT UNABLE TO ME ABOUT SI/HI/AH/VH. PATIENT HAS DEMENTIA WILL CONTINUE TO MONITOR PATIENT FOR SAFETY AND BEHAVIORS.
[2020-07-31 20:54] VITALS: BP 163/92
--- NOTE | 2020-07-31 22:01 | NUR ---
PT SITTING IN LOUNGE CHAIR IN DAY ROOM WATCHING TV. PT COMPLIANT WITH MEDS AND HS SNACK. PT DROWSY. PT SMILES WHEN INTERACTING WITH STAFF OTHERWISE BLUNTED AFFECT. CHAIR ALARM ON.
[2020-08-01 09:17] VITALS: BP 145/91
--- NOTE | 2020-08-01 15:47 | NUR ---
PT HAS BEEN VERY LETHARGIC THIS SHIFT BUT EASILY AROUSABLE. PT ABLE TO WAKE UP AND EAT AND TAKE PILLS BUT HAS CONTINUED TO FALL BACK ASLEEP QUICKLY AFTER MEAL OR PILLS. PT TAKES PILLS CRUSHED IN APPLESAUCE. THIS AFTERNOON PT HAS HAD 1 LARGE INCONTINENT STOOL THAT LABORER/KEY MAN ASSISTED PT BY CLEANING HIM AND CHANGING BRIEF. PT AT ONE POINT THIS AFTERNOON SAT UP IN CHAIR WITH EYES CLOSED AND SPIT ACROSS THE ROOM ONTO THE FLOOR. PT DID NOT APPEAR TO HAVE DONE IT ON PURPOSE OR EVEN KNOW THAT HE HAD SPIT.
[2020-08-01 19:34] VITALS: BP 144/76
--- NOTE | 2020-08-01 23:30 | NUR ---
DID TAKE HS MEDICATIONS WHOLE IN PUDDING. SITTING IN GERICHAIR IN DAYROOM ON INITIAL APPROACH THIS PM-DOES RESPOND PLEASANTLY TO GREETING FROM NURSING. IS NOTED TO HAVE SOME FACIAL GRIMACING WITH MOVEMENT AND WHEN ASKED DOES INDICATE IS HAVING PAIN HOWEVER DESPITE REPEATED INQUIRES IS UNABLE TO STATE WHERE DISCOMFORT IS-NOTED TO RAISNG ARMS OVER HEAD OR HOLDUNG ONE OR BOTH ARMS IN THE AIR FOR NO APPARENT REASON. CALLS OUT FREQUENTLY FOR [facility]. LUNGS CLEAR. ABDOMEN SOFT AND NON-TENDER. ORIENTED TO NAME ONLY. TAKES PO FLUIDS AND FOOD WELL.
[2020-08-02 10:05] VITALS: BP 168/80
[2020-08-02 17:59] VITALS: BP 168/80
--- NOTE | 2020-08-02 18:38 | NUR ---
0961 BENITO recieved and email from Mary requesting a referral be sent to [facility] for skilled Rehab. 1048 BENITO emailed referral to Tessie Escobar, [facility] Admissions, at [email or web address]. Amarilis was informed via email a referral had been sent. 1216 BENITO recieved an email from Amarilis requesting a referral be sent to [facility]. SW responded and informed a referral was sent on 07/29/2020 and [facility] denied on 07/30/2020. BENITO also contacted Maria Fernanda Echeverria the admissions at [facility] via email and phone call. SW was able to talk to Maria Fernanda on the phone concerning the matter. Maria Fernanda stated they would be unable to meet the Pt's needs. SW asked Maria Fernanda to call Amarilis concerning the matter. Maria Fernanda stated she would give Amarilis a call concerning the denial. 1255 BENITO emailed Amarilis a list of all referral sent and the decision from those facilities. [address] Lyle called Amarilis concerning medications and discharge. Amarilis did not answer. Dr. Lyle left a message and Pt's discharge date of 08/04/2020. BENITO or Dr. Lyle did not recieve a call back @1500 BENITO recieved and email from Tessie at [facility] stating they cannot take the Pt. @1614 BENITO emailed Amarilis to inform of the denial. SW also informed of discharge date of 08/04/2020 @ 9am. A copy of all emails have been placed in the Pt's chart
[2020-08-02 19:51] VITALS: BP 158/90
--- NOTE | 2020-08-02 20:03 | NUR ---
Assumed pt care at 0700. pt was calm and co-operative with care. Assessments completed, vss. pt was mostly sleeping but arousable during the day. took meds crushed, no difficulty noted. NO sign of si/hi noted. No c/o pain. Pt was assisted with meals. Ambulates with a Rianna chair. PT visited. pt asked if she could get med record on pt. Civil Manager told her she doesn't have assess to print records before d/c. Dr hector was notified. pt asked for med list. technical document writer wrote down meds pt is currently on and gave it to her. PT Stated she is trying to find placement FOR .
[2020-08-02 20:30] VITALS: BP 158/90
--- NOTE | 2020-08-03 01:58 | NUR ---
PATIENT WAS SITTING UP IN JUDITH CHAIR IN DINING ROOM EARLIER THIS EVENING. HE TOOK HIS MEDS CRUSHED IN ICECREAM TONIGHT. HE RESPONDS TO HIS NAME. HE HAS KEPT HIS EYES CLOSED WHEN HE TALKS TONIGHT. ASSISTED PATIENT TO THE [facility] AT BEDTIME WHERE HE STOOD AND URINATED ALL OVER THE FLOOR. HE HAD LARGE BM. PATIENT WAS CLEANED AND BARRIER CREAM APPLIED TO CRACK OF BUTTOCKS WHICH WAS RED. PATIENT PLACED IN BED AND MADE COMFORTABLE. TRAZADONE 50MG WAS GIVEN . HE HAS BEEN SLEEPING ALL EVENING. BED IN LOW POSITION AND BED ALARM IS ON. PATIENT IS A/0X1. HE WAS GIVEN TYLENOL TO HELP HIM RELAX AND FOR ANY GENERALIZED ACHES OR PAIN. NO SIGNS OF SI/HI/AVH. ROUTINE ROUNDS TO ASSESS SAFETY AND STATUS OF PATIENT. CONTINUING TO MONITOR.
--- NOTE | 2020-08-03 10:51 | NUR ---
Nutrition followup: pt continues to eat fairly well, 50-100)% of meals. Stable weights on unit. Regular diet. BM 08/03. Unable to interview, significant dementia. Low nutrition risk.
--- NOTE | 2020-08-03 11:12 | NUR ---
@156 Nurse Oswaldo report the Pt daughter, Elidia called with concerns about the Pt having possible swollow issues and excess drooling. @8238 BENITO, Dr. Campos, and BENITO Miller called Amarilis concerning the matter. Amarilis did not answer the phone. Dr. Lyle left a message explaining a side effect of the medication which may be the cause of the excess drooling and that Pt is eating a drinking with no issues at this time. Dr. Lyle requested a call back.
--- NOTE | 2020-08-03 11:21 | NUR ---
@4800 BENITO recieved a call from Maria Fernanda from [facility] concerning Pt's admissions. BENITO asked if they could reach out to Amarilis concerning the facility. BENITO informed that Amarilis's concern is due to the location of the fci. Maria Fernanda stated she would reach out to Mihaela to have a conversation about [facility] and the care offered at the facility.
[2020-08-03 11:29] VITALS: BP 134/90
--- NOTE | 2020-08-03 11:50 | NUR ---
Assumed pt care at 0700. pt was awake, oriented to self, calm and co-operative with care. Pt was assisted with meals. pt was confused. No sign of si/hi noted. no sign of acute distress noted upon assessments. PT C/O PAIN. pain meds administered as ordered. Ambulates with a Baltazar chair. incontinent of bladder x2 this shift. At this time pt is eating lunch. will continue to monitor.
[2020-08-03 13:16] VITALS: BP 134/80
--- NOTE | 2020-08-03 13:37 | NUR ---
SW team contacted Susie Hendrickson as she had contacted the nursing station with concerns from Mary. Dr. Do explained that pt is drooling and spitting due to current psych meds. Susie said she understood. SW asked her if she was in agreement with her father's med change. Susie indicated that her main goal is stability, and that she does not have an opinion specifically on thorazine as that was the medication that Mary requested be discontinued. BENITO explained that she is concerned that with her mom not allowing treatment and is impeding placement options, that pt will go home and Mary will be overwhelmed. Susie said that is her concern also. She said that she plans to come in approx 2 weeks time from [place]. She said that she knows her mom is being difficult, but that her mom is not listening to anyone. SW asked if she could talk to Mary and help her make sense. She said she will try, but is afraid of her mother's reaction; she explained that she and her siblings upset Mary so much before that she packed her things and her father up and moved from [place] to suddenly. She said at this time Mary does not have a support system in at all. She said she believes her mother needs therapy as she is having a difficult time accepting everything. She also said that Mary is struggling with the fact that one of her brothers is homeless and an alcoholic. Mary kicked him out her home 2 months ago. She also mentioned that pt's mother also recently and that may have propelled his decline. She agreed to contact the SW team for any concers and support needs. SW team will continue to follow pt during his stay on this unit.
--- NOTE | 2020-08-03 13:50 | NUR ---
Spoke with patients spouse Mary this AM and allowed for her to describe her current situation. The spouse despite numerous and multiple referrals sent by the [facility] team is not happy with the accepting facility as the patient is no longer in need of an acute psychiatric bed; as evidence by MD, nursing and social work documentation. Mary was also allowed to express her "grief" as she called it in dealing with the decline of her spouse in his current state. Allowed Mary to explain her past history in both Hospital and Nursing administration. Explained current practice of Skilled facilities and often hesitation on accepting of patients with recent acute psychiatric stays in conjunction with their current resident population. Also clarified that the referrals being sent out were those requested medical records as she was concerned these referrals were being sent with more verbal interpterion of the patient's condition by the sender rather than the actual medical record. Mary still does not feel the accepting facility will meet her husbands needs and stated she will be there to pick him up Sunday at 0900 where her intent is to take him home with her. She is calling private duty services and stated that the Social Work team has also provided these resources as well. Mary thanked me for my time as the call lasted over 35 minutes and I told her I understood her grief and if she need any further information on private duty agencies she could reach out and she said she had all of their information. Informed the Senior Behavioral Health Director of our conversation and will allow the [facility] team to continue to work towards the patient discharge for July the , where Mary will be there at 9:00 AM to pick the patient up and take him to her home.
[2020-08-03 19:27] VITALS: BP 142/65
--- NOTE | 2020-08-03 20:50 | NUR ---
PT RESTING IN JUDITH CHAIR. PT INTERMITTENTLY GETS UP TO WANDER IN DAY ROOM. STEADY GAIT. PT HUGGING STAFF, STATING I LOVE YOU. PT COMPLIANT WITH MEDS AND HS SNACK A FEW BITES. PT DOES NEED TO BE REMINDED TO OPEN HIS EYES, PT HAS BLUNTED AFFECT.
[2020-08-04 07:35] VITALS: BP 152/82
[2020-08-04] MEDS ORDERED: ARICEPT10 M1 PO (08:44)
[2020-08-04] MEDS ORDERED: DEPAKOTE SPRIN125 MG PO (08:45)
[2020-08-04] MEDS ORDERED: TRAZODONE HCL50 MG PO (08:46)
[2020-08-04] MEDS ORDERED: RISPERIDONE 00.25 MG PO (08:47)
[2020-08-04] MEDS ORDERED: SENNA PLUS TAB1 EACH PO (08:48)
[2020-08-04 09:19] VITALS: BP 152/82
[2020-08-04 10:24] VITALS: BP 152/82
--- NOTE | 2020-08-04 10:40 | NUR ---
1040 RESUMMED CARE FROM OVERNIGHT SHIFT THIS AM, PATIET IN DAY ROOM SITTING QUIETLY. PATIENT WAS CHANGED I GOT HIM DRESSED FOR HIS DISCHARGE TO HOME PATIENT WAS SHAVED. PATIENT ATE BREAKFAST TOOK MEDICATION IN YOGART WITH NO INCIDENCE. PATIENTS ABDOMEN SOFT BOWEL SOUNDS PRESENT PATIENTS LUNGS CLEAR. PATIENT ALERT ORIENTED TO SELF ONLY PATIENT UNABLE TO TELL ME ABOUT SI/HI/AH/VH AT PRESENT. PATIENT HAS DEMENTIA AND HIS ILLNESS IS DECLINING NEEDS ASSIST WITH ADL'S AND TOILETING. PATIENT DISCHARGED TO HOME INSTRUCTIONS GIVEN TO SCRIPTS ELECTRONICALLY SENT TO PHARMACY. PATIENTS WAS ASKING FOR A HOSPICE REFERRAL; I EXPLAINED TO HER SHE SHOULD HAVE ASKED FOR THIS WHILE THE SOCIAL WORKING WAS HELPING WITH PLACEMENT. I ESCORTED PATIENT DOWN AND HELPED ASSIST WITH PLACING IN THEIR VEHICLE.
--- NOTE | 2020-08-06 09:15 | D ---
[facility] [place] [address] DISCHARGE SUMMARY Name: NAPOLEON RAE Room #: 524B-B DIS IN M.R.#: [id number] Admission: 07/26/20 Attend Phys: Keyla Do DO Discharge: 08/04/20 Date of : 52 Report #: [id number] THIS REPORT FOR: cc: Levi Talbert MD, Matthew S. MD Kerstein, Andrew H. DO ~ DOC #: [id number] KEYLA Do DO DATE OF SERVICE: 08/04/2020 INPATIENT PSYCHIATRIC DISCHARGE SUMMARY ATTENDING PSYCHIATRIST: Keyla Do DO PANEL SAW OPERATOR AT THE TIME OF DISCHARGE: Christiano Link MD DISCHARGE DIAGNOSES: Major neurocognitive disorder due to early onset Alzheimer disease with behavioral disturbance, improved. Unspecified psychosis. MEDICAL COMORBIDITIES: Are as follows: History of seizure during initial admission senior behavioral health unit one time prior, insomnia, hypertension, with stable BP, GERD. The patient is being discharged to his home 16/10 care to be provided by his family including his and son after care set up was difficult in this case, this patient has advanced dementia and is not easily taken out for clinic appointments and such. The patient to see primary care physician within 1 month. Recommendation remains for memory care placement at the earliest day. Of note, the patient had been accepted at [facility] locally, his and DPOA declined this. He has been denied for admission to the fdc, the preferred in [facility]. DISCHARGE MEDICATIONS: Donepezil 10 mg oral twice daily. requested this would not be restarted due to being discontinued previously due to weight loss and the degree of his dementia, Depakote Sprinkles 375 mg oral 3 times a day at 9:00 a.m., 3:00 p.m., and 9:00 p.m., trazodone 75 mg oral for sleep p.r.n., risperidone 0.75 mg oral twice daily for psychosis and mood stabilization, senna docusate 2 tabs oral twice daily for bowel motility, hold if diarrhea. Regular diet with assisted feedings. was given crisis suicide hotline information. ACTIVITY LEVEL: As tolerated, 16/10 care. The patient is at fall risk and is weak this point. LABORATORY DATA: Significant laboratories this admission, ____ Depakote level 99, was on 07/29. I have reduced his dose to 375 three times a day. COVID-19 test was negative on 07/14. REASON FOR ADMISSION: Initially, the patient was brought to the [facility] unit 07/16 through 07/23 and readmitted on 07/26. He had been [address] [address] DISCHARGE SUMMARY Name: NAPOLEON RAE Room #: 524B-B DIS IN M.R.#: [id number] Admission: 07/26/20 Attend Phys: Keyla Do DO Discharge: 08/04/20 Date of : 52 Report #: [id number] living with his in [place], was having assaultive behaviors. DISCHARGE PLANNING: See Dr. Dejon Black with [facility] for outpatient psychiatry. HOSPITAL COURSE: Upon readmission, placed the patient on Thorazine regimen, titrated notably 50 mg 3 times a day. The family, his in particular participated in treatment team meeting. She requested Thorazine be discontinued. He will be placed on risperidone. She also requested donepezil to be restarted. I advised her against this as he is doing clinically well at the time. Unfortunately, after her participation in treatment team meeting, declined local memory care placement where the patient has been accepted. In addition, the patient had decreased activity and had his risperidone as high as 1 mg twice a day and reduce to 0.75 b.i.d. At the time of discharge, the patient was required assisted feedings, was stable. Not suicidal or homicidal, had advanced cognitive impairment due to his dementia. PHYSICAL EXAMINATION: VITAL SIGNS: On the day of discharge, temperature 36.3, pulse 102, respirations 17, BP 152/82. Also largely nonambulatory, wheelchair bound at discharge. GENERAL: This is a well-developed, unkempt male, tall, appearing stated age. His weight at time of discharge was 91.172 kilos. This is a decrease of high 91.371 on the , he had been as high as 94 kilos on 07/18 prior to his medical admission. REST OF THE MENTAL STATUS EXAMINATION: Attention and concentration impaired. Speech, soft, normal rate. Thought process linear. Very limited thought content, largely nonsensical. No psychomotor agitation or psychomotor retardation. No self-harm behavior, appeared to respond to internal stimuli. Insight and judgment impaired. Fund of knowledge: Grossly diminished. Prognosis for this patient is guarded to poor given his advanced dementia, medical comorbidities. DO CORY Lancaster/CHRISS/SARANI <ELECTRONICALLY SIGNED> By: Keyla Do DO 08/06/20914 [id number] Keyla Do, DO /nt
== END 2020-08-04 10:00 | disposition home or self-care (01) | DRG 57 ==
LOC: SBH
PROVIDERS: ADMIT Psychiatry & Neurology Psychiatry; ATTEND Psychiatry & Neurology Psychiatry
DX: G30.0 Alzheimer's disease with early onset (principal); F02.81 Dementia in other diseases classified elsewhere, unspecified severity, with behavioral disturbance; F29 Unspecified psychosis not due to a substance or known physiological condition; G47.00 Insomnia, unspecified; K21.9 Gastro-esophageal reflux disease without esophagitis; I10 Essential (primary) hypertension; Z66 Do not resuscitate
CPT/HCPCS: 10880